=== PATIENT | male | born 1950 | race Caucasian/White ===

== ENCOUNTER 2018-03-10 13:13 | Day surgery (SDC) | payer OTHER ==
[~2018-03-10] VITALS: Ht 180.3 cm; Wt 90.3 kg
[~2018-03-10 13:13] MED LIST: ACETAMINOPHEN325 M1 PO; ASPIRIN EC81 MG PO; CLARITIN10 M2 PO; DIPHENHYDRAMINE50 MG PO; FLUTICASONE PRO16 GM NS; LIPITOR40 MG PO; LISINOPRIL10 MG PO; PANTOPRAZOLE SO40 MG PO
--- NOTE | 2018-03-10 15:28 | NUR ---
03/10/18 1528 Sonya Lauren 1523 PT ARRIVED DROWSY. RESP EVEN AND UNLABROED. PT REPORTING GAS PAIN 5/10, PT ENCOURAGED TO PASS GAS/AIR.
--- NOTE | 2018-03-11 10:37 | OR ---
[facility] [address] [place], [place] [address] Signed DATE OF OPERATION: 03/10/2018 SURGEON: Sania Macedo MD PREOPERATIVE DIAGNOSES: 1. Colon cancer screening. 2. Family history of colon cancer in brother ( at 74). POSTOPERATIVE DIAGNOSIS: Diminutive polyp of rectosigmoid (excised). PROCEDURE: Total colonoscopy to cecum with cold morcellation polypectomy x1. ANESTHESIA: Intravenous sedation, fentanyl 200 mcg, Versed 8 mg. INDICATION: This 68-year-old white man is a patient of Dr. Mian Neil at [facility]. Previously saw Dr. Lyle. He underwent colonoscopy four years ago approximately elsewhere. He is known to have a family history of colon cancer in a brother, who of colon cancer at age 74. He is currently free of symptoms. He did have prostate cancer in 2006, undergoing surgical resection of the prostate. He is admitted at this time to undergo colonoscopy. He understands the risks of bleeding, infection, and perforation. FINDINGS: The prep was good. Complete colonoscopy was undertaken to the cecum without question. The colon was entirely normal except for a diminutive polyp of the rectosigmoid, was excised with cold morcellation technique. It was probably hyperplastic. There was some internal hemorrhoids as well. DESCRIPTION OF PROCEDURE: The patient was brought to the endoscopy suite, placed in lateral decubitus position, given intravenous sedation to the point of slurred speech and nystagmus. Digital rectal examination was normal. An Olympus video colonoscope was passed in the rectum and manipulated throughout the colon ultimately intubating the cecum itself. The ileocecal valve and appendiceal Electronically Signed By: SANIA MACEDO MD 03/11/18 [facility] PATIENT NAME: KRISTIE CORREA OPERATIVE REPORT DATE OF : 48 REPORT #: [id number] PHYSICIAN: SANIA MACEDO MD PCP: CANDELARIO LYLE DO REPORT IS CONFIDENTIAL AND NOT TO BE RELEASED WITHOUT AUTHORIZATION [facility] [address] [place], [place] [address] Signed orifice were normal. Irrigation was undertaken as needed. The scope was carefully withdrawn from that point and examination throughout showed no sign of abnormality, specifically no diverticular formation, colitis or cancer. In the rectosigmoid, there was a diminutive polyp, was probably not adenomatous, more likely hyperplastic, but it was excised nonetheless. Further withdrawal of scope allowed for retroflexed view in the rectum, which was normal except for internal hemorrhoids. The scope was straightened and removed, and the patient was taken to recovery room in good condition. CONCLUSION DIAGNOSES: 1. Diminutive polyp of rectosigmoid, excised. 2. Internal hemorrhoidal changes. PLAN: Recommend high-fiber diet. Repeat colonoscopy in seven years, sooner if clinically indicated. He will return to the ongoing care of Dr. Neil at [facility]. MD COLEEN Stoll/PAT /[id number] cc: Mian Neil MD Copies: MIAN NEIL MD ~ Electronically Signed By: SANIA MACEDO MD 03/11/18 1037 PATIENT NAME: KRISTIE CORREA OPERATIVE REPORT DATE OF : 48 REPORT #: [id number] PHYSICIAN: SANIA MACEDO MD PCP: CANDELARIO LYLE DO REPORT IS CONFIDENTIAL AND NOT TO BE RELEASED WITHOUT AUTHORIZATION
== END 2018-03-10 16:00 | disposition home or self-care (01) ==
LOC: OPS 13:13 → DS 13:13 → OPS 14:00 → DS 14:00 → OPS 16:00
PROVIDERS: Surgery
PROC: 0DBN8ZZ Excision of Sigmoid Colon, Via Natural or Artificial Opening Endoscopic (ICD-10-PCS; principal; 2018-03-10 14:00)
DX: Z12.11 Encounter for screening for malignant neoplasm of colon (principal); K63.5 Polyp of colon; K64.8 Other hemorrhoids; I10 Essential (primary) hypertension; R35.0 Frequency of micturition; Z86.010 Personal history of colon polyps; Z80.0 Family history of malignant neoplasm of digestive organs; Z85.46 Personal history of malignant neoplasm of prostate
CPT/HCPCS: 99153; G0500; J2250; J3010; J7120

== ENCOUNTER 2021-01-20 14:49 | Emergency (ER) | payer OTHER ==
[~2021-01-20] VITALS: Ht 180.3 cm; Wt 89.6 kg
--- NOTE | 2021-01-21 11:31 | EKG ---
[facility] [address] [facility] [place], [place] [address] Signed Normal sinus rhythm Normal ECG Confirmed by JANNA SMITH MD ([id number]) on 01/21/2021 11:31:45 AM Electronically Signed By: JANNA SMITH MD 01/21/21 1131 PATIENT NAME: KRISTIE CORREA Electrocardiogram DATE OF : 48 PHYSICIAN: JANNA SMITH MD REPORT #: [id number] REPORT IS CONFIDENTIAL AND NOT TO BE RELEASED WITHOUT AUTHORIZATION
== END 2021-01-20 16:30 | disposition home or self-care (01) ==
LOC: ED 14:49
DX: K21.9 Gastro-esophageal reflux disease without esophagitis (principal); I10 Essential (primary) hypertension; E78.00 Pure hypercholesterolemia, unspecified; I25.2 Old myocardial infarction; Z79.899 Other long term (current) drug therapy; Z79.82 Long term (current) use of aspirin
CPT/HCPCS: 71045; 80053; 83735; 84484; 85025; 93005; 93010; 99285-25